=== PATIENT | male | born 1980 | race African-American/Black ===

== ENCOUNTER 2018-01-03 17:48 | Emergency (ER) | payer MEDICAID ==
[2018-01-03 18:13] LABS: PLATELET COUNT 196 10^3/uL (150-400)
--- NOTE | 2018-01-03 18:47 | EDPHY ---
General - History Smoking Status: Current every day smoker Time Seen by Provider: 01/03/18 18:20 Narrative: CHIEF COMPLAINT: "I Wanna kill somebody and I'm seeing things" HISTORY OF PRESENT ILLNESS: Patient presents by EMS with reports of "I Wanna kill somebody and I am seeing things."He states that he has had feelings of wanting to kill someone. He has no specific names. He has no specific plan. He states that he is just "felt a strong urge to kill someone." He associates this with what he describes as hallucinations. He says that "I am seeing things crawling on my arms and legs I do not think are there." These are intermittent. He has no headache, neck pain, chest pain, cough or shortness of breath. He is here asking for us to resume his medications and change the doses. No other associated complaints or modifying factors PSYCHIATRIC DIAGNOSES: Schizoaffective PRIOR PSYCHIATRIC EVALUATIONS: Multiple inpatient evaluations reported by patient M1/DETAINER: Here at 6:20 p.m. REVIEW OF SYSTEMS: Ten systems reviewed and are negative unless otherwise noted in the HPI EXAMINATION General Appearance: Alert, no distress Head: normocephalic, atraumatic Eyes: Pupils equal and round, no conjunctival pallor or injection ENT, Mouth: Mucous membranes moist Neck: Normal inspection, supple, non-tender Respiratory: Lungs are clear to auscultation Cardiovascular: Regular rate and rhythm Gastrointestinal: Abdomen is soft and nontender Back: non-tender, no bony abnormalities Neurological: A&O, nonfocal, normal gait Skin: Warm and dry, no rash Extremities: Nontender, no pedal edema Psychiatric: Normal mood and affect. Describes occasional visual hallucinations. He describes "I Wanna kill someone,"but he denies any plan or specific individuals. DIFFERENTIAL DIAGNOSES: Including but not limited to homicidal ideation, suicidal ideation, schizoaffective, schizophrenia, polysubstance abuse, malingering MDM: 6:20 p.m. Homicidal ideation and hallucinations without suicidal ideation. Patient does have known schizoaffective disorder. He has not been on medications for several months. He has been placed on a detainer. Proceed with medical clearance for evaluation. 7:30 p.m. Patient's CBC and chemistry unremarkable, but urine sample not yet obtained. 8:30 p.m. Patient is currently be evaluated by Katie with [facility] 9:30 p.m. Patient has been evaluated by Katie. She has discussed the case with Dr. Palma. Dr. Palma recommends the patient be re-evaluated in the morning due to the positive amphetamine urine drug screen. 10:30 p.m. Patient resting comfortably. 12:20 a.m. At this time I have discussed the case with Dr. Philippe. He will assume care the patient. Please see his note final disposition. The plan is for the patient to be re-evaluated by mental health at a.m. In the morning. SUPERVISION: Patient was independently examined, but I discussed the case with my secondary supervising physician Dr. Philippe ([facility]) 0600: No acute events overnight. Patient has been sleeping. Patient due to get re-evaluated this morning. Was positive for methamphetamine. Has a history of schizoaffective disorder. Signed over at 7:00 a.m. Shift change to Dr. Plasencia. (Taye Philippe) Medical Decision Making: I assumed care of the patient at 7:30 a.m. In the morning. The patient was evaluated by [facility] who feels the patient is malingering and does not meet criteria for 72 hr hold. The patient will be discharged from the emergency department. (Stephane Plasencia) - Objective Vital Signs: Initial Vital Signs Temperature (C) 36.8 C 01/03/18 18:10 Heart Rate 84 01/03/18 18:10 Respiratory Rate 18 01/03/18 18:10 Blood Pressure 129/92 H 01/03/18 18:10 O2 Sat (%) 100 01/03/18 18:10 O2 Delivery Mode Room Air Allergies/Adverse Reactions: phenytoin [From Dilantin] Allergy (Verified 01/03/18 18:19) Laboratory Results: Laboratory Results 01/03/18 18:05 01/03/18 18:05 01/03/18 19:30 Urine Opiates Screen NEGATIVE (NEGATIVE) Urine Barbiturates NEGATIVE (NEGATIVE) Ur Phencyclidine Scrn NEGATIVE (NEGATIVE) Ur Amphetamine Screen NON-NEGATIVE H (NEGATIVE) U Benzodiazepines Scrn NEGATIVE (NEGATIVE) Urine Cocaine Screen NEGATIVE (NEGATIVE) U Marijuana (THC) Screen NEGATIVE (NEGATIVE) Departure - Departure Disposition: Home, Routine, Self-Care Clinical Impression: Polysubstance abuse Condition: Fair Instructions: Methamphetamine Abuse (ED) Additional Instructions: 1. Please follow-up with the mental health resources provided in the ED today. 2. [facility] does operate a 09/11 psychiatric crisis unit located at [facility]. The telephone number for the 24 hour crisis center is [phone]. 3. Please return to the ED if you are feeling suicidal, having thoughts of harming yourself/others or should you feel unsafe or have worsening symptoms. Referrals: [facility] [Outside] - As per Instructions
[2018-01-04 08:26] VITALS: BP 149/109
--- NOTE | 2018-01-04 08:45 | ASMTTLCEVL ---
[facility] Evaluation - Basic Information Evaluation Start Date and 01/03/2018 08:30 PM Time Hospital Status Answers: Voluntary Patient statement Notes: " I'm hallucinating and I feel like I want to hurt people again." Narrative Notes: Pt is a 37 year old, homeless, unemployed, male with reported history of schizoaffective disorder - bipolar type, methamphetamine use disorder, and cocaine use disorder, who was brought to [facility] ED by [facility] after he called and told them he wanted to kill someone and was seeing things. Pt reported he is "seeing little things crawling on me." Pt reported he started having these thoughts earlier today but has had HI and VH in the past. Pt reports that in the past he was on drugs when he had HI and VH and stated, " Now I am not." Pt does not have anyone in particular he wants to harm. Pt reported he has been off his medications for the past few weeks and stated it is because he has not refilled his prescription. Pt receives services through [facility] in [place] and sees Dr. Schumacher. Pt also is enrolled in [facility] but has not started services. Per Haily at [facility], pt was in [facility] on 10/01/17 and was evaluated 3 times in 3 days but was never placed. Diagnosis History Notes: Pt has a hx of schizoaffective, bipolar type and amphetamine use. Prior suicide attempts Notes: Pt stated, "I just got tired of living." Pt was vague about prior attempts and stated, " I've walked in front of cars, traffic, took pills." When asked when his most recnt attempt was, pt stated, " Lasy year, year before." Prior hospitalizations Notes: Pt was hospitalized at [place] in 2017. Treatment Responses Notes: Medication non-compliant and continues to use methamphetamine. History of violence Notes: Pt reports HI at this time with nobody in particular he wants to harm. Psychiatrist: Dr. Schumacher at [facility]. Medications (name, dosage, route, freq uency) Notes: Effexor 100 mg Seroquel 400 mg Klonodine (dose unk) Kolonopin (dose unk) Allergies/Reaction Notes: Unk Sleep Notes: Pt stated he has been "Up for the last few days." Appetite Notes: Pt stated, " I've been real hungry." Medical/Surgical history Notes: Pt stated his back and hands hurt. Pt declined to elaborate. Substance use history (frequency, intensity, his tory, duration) Notes: Pt reported he has a hx of meth use but stated, "I haven't used in a week." When this ad writer informed pt his utox was positive for amphetamine, pt asked to take another utox and stated, "That will mess me up." Pt stated he has been using meth "off and on" for the past year. Per [facility], pt also has a hx of cocaine use, Bal was.0. Family composition Notes: Pt reported he has 1 boc and moc. Pt declined to provide further information about his family. Family psychiatric/substance abuse history Notes: Pt reported his mother and father both have depression. Developmental history Notes: Unable to asses. Pt kept falling asleep during and unable to answer questions. Abuse concerns Answers: None Marital status/children Notes: Pt is and has 2 children ages 8 and 6. Pt stated his children live with their mother but he does see his children. He reports he does not have custody. Living situation Notes: Pt is currently homeless. Pt was in [place] and just came to [place] a couple nights ago. Sexual history/orientation Notes: Not active. Heterosexual. Peer support/family strengths Notes: Pt stated, "I have none." Education level/history Notes: Pt stated he has a GED. Work history Notes: Pt stated he is not working. Notes: None Legal Notes: None reported Alevism/Spiritual Notes: None identified that would intefere with treatment. Leisure Notes: None reported. Collateral Notes: P. Patient's strengths Answers: Motivated for Treatment (Please select at least TWO strengths): Willingness [facility] Evaluation - Mental Status Exam Appearance: Answers: Disheveled Eye Contact: Answers: Absent Avoiding Mood: Answers: Irritable Affect: Answers: Irritable Behavior: Answers: Cooperative Impulsive Manipulative Passive Sleeping Speech: Answers: Irrelevant Coherent Slurred Thought Process: Answers: Oriented Loose Associations Insight: Answers: Poor Judgement: Answers: Poor Manic Signs/Symptoms Answers: Impulsivity Irritability Depression Answers: Difficulty Concentrating Signs/Symptoms: Psychomotor Agitation Hallucinations: Answers: Visual Current Stage of Change Answers: Precontemplation Pt reported to have Answers: No suicidal/self-injuring ideation/behavior? Pt reported to be making Answers: No suicidal/self-injuring threats? Pt reported to have Answers: Yes aggression/assault ideation/behavior? Pt reported to be making Answers: Yes aggression/assault threats? Pt exhibits inability to Answers: No care for self/grave disability? Ideation/behavior is Answers: Yes chronic? Patient has a specific Answers: No plan? Pt has access to means to Answers: No execute the plan? Ideation involves Answers: No serious/lethal intent? Ideation has Answers: No delusional/hallucinatory content? History of Answers: Yes suicidal/self-injuring ideation, behavior, or threats? History of Answers: No aggressive/assaultive ideation, behavior, or threats? History of serious Answers: No physical harm to self/others while in treatment setting? [facility] Evaluation - Suicide/Homicide Risk Suicide Risk Factors: Answers: Alcohol/Heavy Drug Use Bipolar Disorder Impulsivity Inadequate Social Support Lack of Alevism Support Lack/Loss of Employment Schizoaffective Disorder Unstable Living Situation Homicide/violence risk Answers: Heavy Drug Use factors: Threats Towards Others Current Suicidal Answers: No Ideation? Current Suicidal Ideation Answers: No in the Past 48 Hours? Current Suicidal Ideation Answers: No in the Past Month? Current Suicidal Answers: No Ideation, Worst Ever? Suicide Internal Answers: Radha with Stress Protective Factors: Suicide External Answers: Responsibility to Protective Factors: Children Ranking of patient's Answers: Low suicidal risk: Ranking of patient's Answers: Low homicidal risk: [facility] Evaluation - Wrap-up AXIS I Diagnosis (include DSM-V and ICD-10 codes), must also be entered in [employer], which is the source of truth. 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 ED physician, Gary Plasencia MD, Dr. Plasencia concurred that pt does not appear to meet 27-65 criteria requiring psychiatric hospitalization as pt does not appear to be an imminent risk of harm to self/others/gravely disabled due to a mental illness condition. pt was offered a bus pass back to [place] where his providers at [facility] are located also. Pt stated commitment or ability to keep self safe. Pt was given local hotline information and [facility] brochure After an Attempt. Evaluation End Date and 01/04/2018 08:30 AM Time (HH:MM): Date Signed: 01/04/2018 08:44 AM Electronically Signed By:Colten Goode
--- NOTE | 2018-01-04 08:46 | ASMTTCLDSP ---
[facility] Discharge Disposition Disposition: Answers: Discharge If Answers: Yes DISCHARGED: Patient/family given suicide hotline info & [employer] brochure? Disposition Notes: Notes: Pt was offered a bus pass back to [place] where his providers at [facility] are located also. Pt stated commitment or ability to keep self safe. Pt was given local hotline information and [employer] brochure After an Attempt. Discharge Concerns/Recommendations: Notes: In consultation with [facility] ED physician, Gary Plasencia MD, Dr. Plasencia concurred that pt does not appear to meet 27-65 criteria requiring psychiatric hospitalization as pt does not appear to be an imminent risk of harm to self/others/gravely disabled due to a mental illness condition. Was patient given the Answers: Not applicable Inpatient Behavioral Health Prohibited Belongings List while in the ED? Date Signed: 01/04/2018 08:45 AM Electronically Signed By:Colten Goode
== END 2018-01-04 08:38 | disposition home or self-care (01) ==
DX: F15.151 Other stimulant abuse with stimulant-induced psychotic disorder with hallucinations (principal); F20.9 Schizophrenia, unspecified
CPT/HCPCS: 80305; G0480

== ENCOUNTER 2018-02-02 06:19 | Inpatient (IN) | payer MEDICAID, OTHER ==
--- NOTE | 2018-02-02 06:30 | EDPHY ---
H & P Source: Patient, Police, EMS - Medical/Surgical History Hx Asthma: Yes Hx Chronic Respiratory Disease: No Hx Diabetes: No Hx Cardiac Disease: No Hx Renal Disease: No Hx Cirrhosis: No Hx Alcoholism: No Hx HIV/AIDS: No Hx Splenectomy or Spleen Trauma: No Other PMH: asthma. PTSD, Bipolar. - Social History Smoking Status: Current every day smoker Time Seen by Provider: 02/02/18 06:27 HPI/ROS: HPI CHIEF COMPLAINT: Gravely disabled, M1 hold by [facility] HISTORY OF PRESENT ILLNESS: 37-year-old male presents emergency room by EMS with police escort after was seen at [facility] and had evaluation placed on M1 hold for potentially being gravely disabled, and paranoid. Patient arrives to the emergency room is very uncooperative. Refusing to take off his jacket refusing to get vital signs, refusing blood work. Patient keep stating that he wants to be re-evaluated. Patient is unhappy about being here. Police at bedside. Due to this review of systems history somewhat limited. Past Medical History: Schizophrenia, paranoid Past Surgical History: Unknown surgical Social History: Unknown Family History: Unknown ROS REVIEW OF SYSTEMS: Limited due to patient's cooperation. Exam Constitutional uncooperative however nontoxic triage nursing summary reviewed, vital signs reviewed, awake/alert. Eyes normal conjunctivae and sclera, EOMI, PERRLA. HENT normal inspection, atraumatic, moist mucus membranes, no epistaxis, neck supple/ no meningismus, no raccoon eyes. Respiratory clear to auscultation bilaterally, normal breath sounds, no respiratory distress, no wheezing. Cardiovascular rate normal, regular rhythm, no murmur, no edema, distal pulses normal. Gastrointestinal soft, non-tender, no rebound, no guarding, normal bowel sounds, no distension, no pulsatile mass. Genitourinary no CVA tenderness. Musculoskeletal no midline vertebral tenderness, full range of motion, no calf swelling, no tenderness of extremities, no meningismus, good pulses, neurovascularly intact. Skin pink, warm, & dry, no rash, skin atraumatic. Neurologic awake, alert and oriented x 3, AAOx3, moves all 4 extremities equally, motor intact, sensory intact, CN II-XII intact, normal cerebellar, normal vision, normal speech. Psychiatric angry, uncooperative Heme/Lymph/Immune no lymphadenopathy. Differential Diagnosis: Includes but is not limited to in a particular order underlying mental illness, paranoid schizophrenia, acute psychosis, drug intoxication Medical Decision Making: Plan for this patient he will need medical clearance with blood drawn urine. He will need formal evaluation after this. Re-evaluation: Signed over to Dr. Hernandez 7am. (Taye Philippe) Constitutional: Initial Vital Signs Temperature (C) 36.6 C 02/02/18 06:20 Heart Rate 114 H 02/02/18 06:20 Respiratory Rate 20 02/02/18 06:20 Blood Pressure 145/114 H 02/02/18 06:20 O2 Sat (%) 96 02/02/18 06:20 O2 Delivery Mode Room Air O2 (L/minute) 2 Allergies/Adverse Reactions: phenytoin [From Dilantin] Allergy (Verified 02/02/18 07:01) Home Medications: Medication Instructions Recorded NK [No Known Home Meds] 02/02/18 Medical Decision Making ED Course/Re-evaluation: 7:00 a.m. care of this patient at shift change. History of schizophrenia, presents with acute psychosis. Zyprexa 10 mg IM given during the material handler 2nd shift. Now resting comfortably. Mental health evaluation pending. (Ana Hernandez) I took over care of this patient at 3:00 p.m.. This patient is on an M1 hold. The patient has a history of schizophrenia it is acutely psychotic. The patient has been given intramuscular Zyprexa. The patient is being evaluated currently. 5:30 p.m., the patient has been seen and evaluated by Behavioral Health. He will be admitted to [address] [place] [address] for inpatient psychiatric care. Admitting psychiatrist if his Dr. Palma. I have filled out the appropriate transfer paperwork. The patient's remaining emergency department course under my care has been uneventful. The patient was transferred in stable condition. ( Ildefonso Bishop) - Data Points Laboratory Results: Laboratory Results 02/02/18 06:45 02/02/18 06:45 02/02/18 02/02/18 02/02/18 08:00 06:45 06:45 WBC 11.72 10^3/uL H 10^3/uL (3.80-9.50) RBC 5.01 10^6/uL 10^6/uL (4.40-6.38) Hgb 16.1 g/dL g/dL (13.7-17.5) Hct 45.1 % % (40.0-51.0) MCV 90.0 fL fL (81.5-99.8) MCH 32.1 pg pg (27.9-34.1) MCHC 35.7 g/dL g/dL (32.4-36.7) RDW 13.0 % % (11.5-15.2) Plt Count 334 10^3/uL 10^3/uL (150-400) MPV 9.1 fL fL (8.7-11.7) Neut % (Auto) 74.0 % % (39.3-74.2) Lymph % (Auto) 16.4 % % (15.0-45.0) [place] % (Auto) 8.5 % % (4.5-13.0) Eos % (Auto) 0.2 % L % (0.6-7.6) Baso % (Auto) 0.7 % % (0.3-1.7) Nucleat RBC Rel Count 0.0 % % (0.0-0.2) Absolute Neuts (auto) 8.68 10^3/uL H 10^3/uL (1.70-6.50) Absolute Lymphs (auto) 1.92 10^3/uL 10^3/uL (1.00-3.00) Absolute Monos (auto) 1.00 10^3/uL H 10^3/uL (0.30-0.80) Absolute Eos (auto) 0.02 10^3/uL L 10^3/uL (0.03-0.40) Absolute Basos (auto) 0.08 10^3/uL 10^3/uL (0.02-0.10) Absolute Nucleated RBC 0.00 10^3/uL 10^3/uL (0-0.01) Immature Gran % 0.2 % % (0.0-1.1) Immature Gran # 0.02 10^3/uL 10^3/uL (0.00-0.10) Sodium 137 mEq/L mEq/L (135-145) Potassium 4.9 mEq/L mEq/L (3.3-5.0) Chloride 99 mEq/L mEq/L (97-110) Carbon Dioxide 23 mEq/l mEq/l (22-31) Anion Gap 15 mEq/L H mEq/L (6-14) BUN 23 mg/dL mg/dL (7-23) Creatinine 1.1 mg/dL mg/dL (0.7-1.3) Estimated GFR > 60 Glucose 112 mg/dL H mg/dL (70-100) Calcium 10.6 mg/dL H mg/dL (8.5-10.4) Urine Opiates Screen NEGATIVE (NEGATIVE) Urine Barbiturates NEGATIVE (NEGATIVE) Ur Phencyclidine Scrn NEGATIVE (NEGATIVE) Ur Amphetamine Screen NEGATIVE (NEGATIVE) U Benzodiazepines Scrn NEGATIVE (NEGATIVE) Urine Cocaine Screen NEGATIVE (NEGATIVE) U Marijuana (THC) Screen NEGATIVE (NEGATIVE) Ethyl Alcohol < 10 mg/dL mg/dL (0-10) Medications Given: Discontinued Medications Olanzapine (Zyprexa Injection) 10 mg IM EDNOW ONE Stop: 02/02/18 06:35 Last Admin: 02/02/18 06:50 Dose: 10 mg Departure - Departure Disposition: [facility] IP Clinical Impression: Schizophrenia, Psychosis Referrals: Patient,NotPresent [Unknown] - As per Instructions
[2018-02-02] MEDS ORDERED: OLANZapine 10 MG/2 ML VIAL IM ONE (06:34)
[2018-02-02 06:50] LABS: PLATELET COUNT 334 10^3/uL (150-400)
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
--- NOTE | 2018-02-02 18:45 | ASMTTCLDSP ---
TLC Discharge Disposition Disposition: Answers: Admit Disposition Notes: Notes: In consultation with [facility] ED physician, Amna Hernandez MD and on-call psychiatrist, Mike Ramirez MD, both concurred that pt appears to meet 27-65 criteria requiring psychiatric hospitalization as pt appears to be at risk of harm to self due to a mental illness condition. Discharge Concerns/Recommendations: Notes: Pt would not cooperate and complete BDI/BSS or sign patient rights. Was patient given the Answers: Yes Inpatient Behavioral Health Prohibited Belongings List while in the ED? For inpatient Dr Mike Ramirez admission, the following psychiatrist agreed to accept patient for admission to Behavioral Health ([facility]): Type of Hold: Answers: /72-hour Hold Date Signed: 02/02/2018 06:44 PM Electronically Signed By:Mellisa Parker
[2018-02-02] MEDS ORDERED: OLANZapine DISINTEGR 5 MG TAB PO PRN (21:43)
[2018-02-02] MEDS ORDERED: MAG HYDROX/AL HYDROX/SIMETH 30 ML UDCUP PO PRN (21:43)
[2018-02-02] MEDS ORDERED: ACETAMINOPHEN 325 MG TAB PO PRN (21:43)
[2018-02-02] MEDS ORDERED: MAGNESIUM HYDROXIDE 30 ML UDCUP PO PRN (21:43)
[2018-02-02] MEDS ORDERED: NICOTINE POLACRILEX 2 MG GUM B PRN (21:43)
[2018-02-03] MEDS: LORazepam 0.5 MG TAB PO PRN ×2 (02:03→20:07)
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
--- NOTE | 2018-02-03 14:11 | BAPA ---
DATE OF SERVICE: 02/03/2018 CHIEF COMPLAINT: Patient refuses to meet with this AUTOMOTIVE SALES REPRESENTATIVE for evaluation. HISTORY OF PRESENT ILLNESS: From the ED note dated 02/02/2018, patient presented to the emergency room by EMS with police escort after he was seen at [facility], evaluated, and placed on an M1 hold for being gravely disabled and paranoid. Patient was very uncooperative in the emergency room. Patient refused to take off his jacket, refused vital signs, refused blood work. Patient repeatedly kept stating that he wanted to be reevaluated. Patient reported he was unhappy about being at the emergency department. Police were at bedside during the emergency department interview. Patient is a poor historian and provided very little information during the ED interview. From the [facility] evaluation dated 02/02/2018, patient was placed on an M1 hold with M1 hold start date of 02/02/2018 at 5:30 a.m. Patient reported to the [facility] supervisor border department "for my safety." Patient only spoke spontaneously about how he felt. He was mistreated by staff in the emergency department. Patient is homeless, was brought to the [facility] ED on an M1 hold. Patient has a history of schizoaffective disorder. M1 hold stated that patient reported hearing things, seeing things, felt paranoid, and was too suspicious and paranoid to remain at [facility] walk-in clinic. Patient was placed on an M1 hold due to grave disability. Patient was given Zyprexa 10 mg injection at 0634. [facility] reported that patient has a history of meth use and recently started using Mental Health treatment and not following through with treatment recommendations. Patient's BAL was negative and toxicology screen was negative for substances screened. Patient presented to the emergency department on 01/03. History of diagnoses of schizoaffective disorder bipolar type, methamphetamine use disorder, and cocaine use disorder. At that time, patient was brought to the [facility] ED by the [facility] after he called and told them he wanted to kill someone and was seeing things. Patient reported "seeing little things crawling on me." Patient received services at that time at [facility] in [place], [place], and was followed by Dr. Schumacher at that time. Patient also was enrolled in [facility], but has not started services. Patient was also in the [facility] on 10/01/2017 and was evaluated, but never placed for inpatient psychiatric treatment at that time. PAST PSYCHIATRIC HISTORY: From the [facility] evaluation dated 02/02/2018, patient has a history of polysubstance abuse, PTSD, bipolar disorder, and schizoaffective disorder. Patient has history of medication nonadherence and continuous methamphetamine use. Patient was previously diagnosed with malingering, schizoaffective disorder bipolar type, substance use disorder and substance use disorder severe. Patient has a past history of suicide attempts through cutting, stepping in front of cars, and taking pills in the past. Patient has reported he has sought help instead of following through with suicide attempts. Prior hospitalizations for inpatient psychiatric hospitalization include 01/2017 at [place], January 2009, June of 2009, and September of 2009 at a [facility]. Patient has a history of poor compliance with treatment after making initial evaluation appointments. Patient has a history of aggressiveness towards others when he feels threatened. Patient has a history of making homicidal statements in the past, documented in past ED visit on December of 2016. PAST MEDICATIONS: Include Effexor 100 mg daily, Seroquel 400 mg daily, clonidine unknown dose, and Klonopin unknown dose. ALLERGIES: Phenytoin. CURRENT MEDICATIONS: Zyprexa Zydis 5 to 10 mg p.o. q.4 hours p.r.n. for acute agitation and psychosis; Ativan 0.5, 1 mg p.o. q.6 hours p.r.n. for acute agitation. PAST MEDICAL HISTORY: Patient has a history of asthma. Patient reported a past history of a hernia, and a history of reporting back and hand pain. SOCIAL HISTORY: Patient reported he has 8 children, but only possibly the biological father of 1 child. Patient is currently not . Patient grew up in [place], [place], with his mother and younger brother. Patient's father was not involved in his upbringing since his father was in and out of intermediate for drug issues. Patient's mother remarried when patient was young. Patient spent part of his childhood living in [place] when his stepfather was in the . Patient has a history of special education during his early school years. Patient does report that he is possibly father of 8 children, but did not appear to be a reliable historian when providing this information to the [facility] supervisor border department. Patient is currently homeless in [facility]. He moved from [place] to apparently escape gangs and drugs. Patient reports sexual orientation as heterosexual. Reports he is currently not in a relationship. Patient does not appear to have any peer support and has not followed up with establishing a support system. Patient completed school up to the 11th grade and was in special education classes in elementary school due to being "so angry." Patient indicated completing his GED. Patient is currently unemployed. No known history. Patient was apparently released from group home in June of 2017. Report is vague. Patient has been charged in the past with assaulting a chief of police, second-degree assault, drug possession, and drug distribution. Patient has a history of multiple incarcerations for up to 1 year at a time. Patient identifies himself as a islam person and has expressed in the past that yazdanism is important to him. He identifies himself as Baptism. Patient unable to report hobbies or leisure interests. This information for the social history was taken from the [facility] evaluation dated 02/02. SUBSTANCE USE HISTORY: Patient has a past history of daily meth use. Patient used meth for the first time at age 35. Patient's first use of marijuana was at age 19. Patient has a history of cocaine use. This information is taken from the [facility] evaluation dated 02/02/2018. FAMILY PSYCHIATRIC HISTORY: From the [facility] evaluation dated 02/02/2018, patient reports his mother was diagnosed with schizophrenia and his father and grandmother were diagnosed with bipolar disorder. ADMISSION LABS AND STUDIES: CBC from 02/02/2018 within normal limits except white blood cells were elevated at 11.72, eosinophils were low at 0.2, absolute neutrophils were elevated at 8.68, absolute monocytes were elevated at 1.00, absolute neutrophils were low at 0.02. BMP from 02/02/2018 within normal limits except anion gap was elevated at 15, glucose was elevated at 112, calcium elevated at 10.6. Hemoglobin A1c from 02/02/2018 within normal limits at 5.2. Liver functions from 02/02/2018 within normal limits except AST was elevated at 60 and total protein was elevated at 8.6. Lipid panel from 2017 within normal limits except non-HDL cholesterol was low at 87, HDL cholesterol was elevated at 73. Toxicology screen from 02/02/2018 was negative for all substances screened and negative for ethyl alcohol. MENTAL STATUS EXAM: The patient is a well-nourished male, looking stated chronological age. Attire is inappropriate. Dress is hospital garb and is disheveled and unkempt. Grooming status is inappropriate and disheveled. Ambulation is independent. Gait is normal and coordinated. Posture is normal and relaxed. Eye contact is inappropriate and avoided. Motor activity is appropriate with purposeful, organized, coordinated movements with no involuntary movements noted. Attitude is uncooperative, guarded, defensive, hostile, and angry. Patient appears disinterested and does not relate well to this interviewer. Language production is non-spontaneous. Rate is pressured. Latency of response is prolonged with irritable, angry tone, high volume, and amount is sparse. Articulation is mumbled. Patient reports mood as angry and irritable with expansive and congruent affect. Patient's thought process is nonlinear and illogical with loose associations, tangential thought, thought blocking. Patient is disorganized. Patient does not report suicidal or homicidal thoughts, ideas or plans. Patient denies auditory or visual hallucinations. Patient denies delusions. Patient does not appear to be attending to internal stimuli. Patient is oriented to person. Patient's attention and concentration are poor. Patient's insight and judgment are poor. Unable to appropriately assess cognitive function at this time. Patient does not report undesirable side effects from medications. DIAGNOSES: Based on the patient's history and current presentation, his diagnosis is schizoaffective disorder bipolar type. FORMULATION: Patient is a 37-year-old male, single, unemployed, living homeless in [place], who presents to the hospital involuntarily due to being unable to care for himself and is currently on an M1 hold. Patient requires continued inpatient care because of current psychosis. Patient presents with problems of psychosis, inability to care for himself and communicate his needs, has steadily been increasing over the past several weeks. Patient's life has been affected by these problems including crisis that led to this hospitalization, notably patient's inability to properly care for himself, communicate his needs , and reports that he was hearing and seeing things prior to hospitalization. The exacerbation of symptoms is unknown at this time, however, is likely due to medication nonadherence and substance abuse. This will continue to be investigated during the course of the patient's hospitalization. Patient has a past psychiatric history of schizoaffective disorder bipolar type and stimulant use disorder and nonadherence to medical treatment. Patient is a high safety risk due to current psychosis. Protective factors while hospitalized include ongoing safety checks, active involvement in treatment, and support from our treatment team. Patient could benefit from inpatient hospitalization for safety , crisis stabilization, and medication evaluation. PLAN: (1) Psychotropic medications. Begin a trial of Risperdal M-Tab 1 mg with objective to begin patient on a long-acting injectable prior to discharge due to patient's history of medication nonadherence. No other medication changes at this time as more time is needed to determine ongoing tolerability and efficacy. Plan is to continue to observe patient for response and side effects from medications, and ongoing monitoring and evaluation. (2) Review with patient informed consent and recommendations for psychotropic medication treatment listed below (3) Labs: no additional labs at this time (4) Therapy: continue milieu and group therapy (5) Further investigation including gathering information from patients relatives and review of past case records to inform treatment plan. (6) Safety/Wellness plan and follow-up outpatient appointments to be established prior to discharge. Next steps are for patient to meet with child care attendant school to plan a safe discharge plan and establish outpatient services for ongoing treatment. (7) Confer with inpatient treatment team regarding treatment plan. (8) Legal status: M1 hold (9) Consider discharge next week if patient is in stable condition, safe, and has a safe discharge plan. (10) Substance abuse interventions: methamphetamine ESTIMATED LENGTH OF STAY: 7-10 days PSYCHOTROPIC MEDICATION TREATMENT INFORMED CONSENT and RECOMMENDATIONS: Review nature of condition, diagnosis, and prognosis. Review nature and purpose of psychotropic medication treatment. Review type of psychotropic medications being ordered. Review risk and benefits of psychotropic medication treatment. Review probable length of time will need to take medications. Review risk and benefits of not undergoing psychotropic medication treatment. Review alternative treatments to psychotropic medications. Review psychotropic medications contraindications, drug-drug interactions, side effects, and importance of reporting any side effects to a psychiatric provider or nurse during inpatient hospitalization, and upon discharge to patients psychiatric outpatient provider, primary care provider, or other health director day care center. Review importance of asking a nurse, psychiatric provider, or primary care provider any questions or problems concerning the psychotropic medications. Verify patient understands the information that has been provided, and understands, accepts, and agrees to psychotropic medications. Review patients safety plan and importance of patient to communicate to staff while hospitalized if patient is ever a danger to self/others, or unable to care for self, and upon discharge, the importance for patient to contact [facility] or [facility], or go to the nearest emergency room, if patient is ever a danger to self/others, or unable to care for self. Recommend that upon discharge patient establish medication management treatment with a psychiatric provider, establishes routine therapy appointments, and follow-up with primary care provider. Verify patient understands and agrees to these recommendations. /[id number]/MODL MTDD
[2018-02-03] MEDS: RISPERIDONE 1 MG ODT TAB SL ONE ×2 (14:28→14:51)
--- NOTE | 2018-02-03 15:29 | PDMN ---
Medical Necessity Medical necessity: Pt meets inpt criteria per MD order and [id number], Schizophrenia Spectrum Disorders, Adult: Inpatient Care. 37 y/o presented to ED on M1 Hold due to being gravely disabled and paranoid, admitted w/ schizoaffective disorder, bipolar type, pt requiring inpt psychiatric care due to current psychosis.
--- NOTE | 2018-02-03 16:59 | BCON ---
INTERNAL MEDICINE CONSULTATION. DATE OF CONSULTATION: 02/03/2018 REFERRING PHYSICIAN: Ezio Curiel MD REASON FOR REFERRAL: Medical clearance for inpatient behavioral health stay. HISTORY OF PRESENT ILLNESS: This patient came to the Emergency Department yesterday on an M1 hold from a mental health walk-in clinic where he was noted to be paranoid and gravely disabled. He was initially uncooperative. He was treated with olanzapine and subsequently was cooperative for further evaluation. He was admitted to inpatient Behavioral Health for further psychiatric care. Currently, he complains of hand and feet swelling and hand and feet pain. PAST MEDICAL HISTORY: 1. Asthma. 2. Hernia. 3. Polysubstance abuse. PAST SURGICAL HISTORY: He reports history of hernia surgery. MEDICATIONS: He had been noncompliant. Per the Case Management note, he had been prescribed: 1. Venlafaxine 100 mg daily. 2. Quetiapine 400 mg daily. 3. Clonazepam. ALLERGIES: There is an allergy listed to phenytoin. SOCIAL HISTORY: He is homeless. He is a tobacco smoker. He has a history of methamphetamine and polysubstance abuse. FAMILY HISTORY: There is a family history reported in the chart of schizophrenia and bipolar disorder in various relatives. REVIEW OF SYSTEMS: He reports weight loss but chart review documents stable weight over the past month since his prior visit on 01/03/2018. He complains of hand and foot swelling as well as hand and foot pain. He says he is having trouble breathing. He denies fevers or chills. He says he has constipation. He denies nausea, vomiting, or diarrhea. He has a good appetite. He denies joint pain or joint swelling other than in his hands and feet. Otherwise, a 10- point review of systems is negative. PHYSICAL EXAM: VITALS: This morning at 6 a.m., blood pressure was 101/58, heart rate was 69, respiratory rate was 16, oxygen saturation was 90% on room air. Temperature was 36.8 degrees centigrade. His weight is 68 kg for a body mass index of 24.2. GENERAL: This is a well-nourished, well-developed man, appears his chronologic age, dressed in a [employer] hospital smock and jeans, cooperative and in no acute distress. HEENT: Extraocular movements are intact. Pupils are equal, round, reactive to light. Mucous membranes are moist. Dentition is in good condition. He has an uncrowded airway, Mallampati class 2. NECK: Supple. HEART: There is a regular rate and rhythm with no murmurs, rubs, or gallops. LUNGS: Clear to auscultation bilaterally. ABDOMEN: Soft, nontender, nondistended with normoactive bowel sounds. EXTREMITIES: There is no cyanosis or clubbing. There is 1 to 2+ nonpitting edema bilateral on the dorsal surfaces of the hands and wrists. There is no lower extremity edema. Radial and dorsalis pedis pulses are 2+ bilaterally. NEUROLOGIC: He is alert, orientation was not checked. He knows his location and general situation. Cranial nerves 2-12 are grossly intact. There is no focal weakness. Sensation is intact to light touch and gait is within normal limits. LABORATORY STUDIES: CBC showed an elevated white blood cell count at 11.72. There was no left shift. There were predominantly neutrophils and monocytes. He had a deficit of eosinophils. Serum chemistry revealed an anion gap of 15, otherwise renal function and electrolytes were normal. Glucose was mildly elevated at 112. Hemoglobin A1c was 5.2. Calcium was slightly elevated at 10.6. Liver function tests revealed an elevated AST at 60, otherwise liver function tests were normal with a high protein at 8.6. Lipid panel was quite benign with cholesterol of 160, an LDL of 74, and HDL of 73. Toxicology screen in the serum was negative for ethyl alcohol and the urine was negative for any substances of abuse. ASSESSMENT/RECOMMENDATIONS: 1. History of asthma. He is currently asymptomatic with a normal lung exam and I will not prescribe any specific medications. 2. Tobacco dependence. He was encouraged to quit smoking. Nicotine replacement has been prescribed and this is appropriate. 3. Bilateral hand swelling of unclear etiology. He has normal renal function, normal electrolytes and normal albumin. Potentially he has been doing an excessive amount of walking with his hands in dependent position. Advised observation. 4. Mildly elevated AST in a patient with a history of polysubstance abuse. He did not report a history of hepatitis. Advise follow up testing after discharge. If it does not normalize, it would be appropriate to pursue further testing regarding hepatitis or other etiologies of liver inflammation. 5. Anion gap. He is without any signs or symptoms of an acidosis, metabolic or respiratory. Advise observing for normal oral intake. It is a minor abnormality and there is no indication for further testing at present. I see no medical contraindications to this patient's continued stay on the inpatient behavioral health unit or to any psychiatric medications or procedures. Thank you very much for including me in the care of this patient and please do not hesitate to contact me or the hospitalist service should there be need for further medical evaluation. /[id number]/MODL MTDD
[2018-02-04] MEDS: QUEtiapine FUMARATE 100 MG TAB PO SCH ×2 (08:09→20:23)
--- NOTE | 2018-02-04 08:13 | SOAPPROG ---
SOAP Progress Note Assessment/Plan: Assessment: Schizoaffective disorder, bipolar type; Stimulant Use Disorder, Severe. No change (see Subjective and Objective). Patient is not safe to discharge at this time as patient continues to exhibit signs of psychosis, and express psychosis symptoms. Patient requires continued inpatient care because of current acute psychosis, and requires inpatient level of care to stabilize in order to no longer be gravely disabled due to mental illness. Patient could benefit from continued inpatient hospitalization for crisis stabilization, safety, and medication evaluation. Plan: (1) Psychotropic medications: After reviewing options, risks, and benefits patient agrees to trial of Seroquel 100 mg po BID. Plan is to continue to observe patient for response and side effects from medications, and ongoing monitoring and evaluation. (2) Review with patient informed consent and recommendations for psychotropic medication treatment listed below (3) Labs: no additional labs at this time (4) Therapy: continue milieu and group therapy (5) Further investigation including gathering information from patients relatives and review of past case records to inform treatment plan. (6) Safety/Wellness plan and follow-up outpatient appointments to be established prior to discharge. Next steps are for patient to meet with residential child care counselor to plan a safe discharge plan and establish outpatient services for ongoing treatment. (7) Confer with inpatient treatment team regarding treatment plan. (8) Legal status: M1; patient agrees to sign-in for voluntary hospitalization when M1 expires (9) Consider discharge next week if patient is in stable condition, safe, and has a safe discharge plan. PSYCHOTROPIC MEDICATION TREATMENT INFORMED CONSENT and RECOMMENDATIONS: Review nature of condition, diagnosis, and prognosis. Review nature and purpose of psychotropic medication treatment. Review type of psychotropic medications being ordered. Review risk and benefits of psychotropic medication treatment. Review probable length of time patient will need to take medications. Review risk and benefits of not undergoing psychotropic medication treatment. Review alternative treatments to psychotropic medications. Review psychotropic medications contraindications, drug-drug interactions, side effects, and importance of reporting any side effects to a psychiatric provider or nurse during inpatient hospitalization, and upon discharge to patients psychiatric outpatient provider, primary care provider, or other health residential child care counselor. Review importance of asking a nurse, psychiatric provider, or primary care provider any questions or problems concerning the psychotropic medications. Verify patient understands the information that has been provided, and understands, accepts, and agrees to psychotropic medications. Review patients safety plan and importance of patient to report to staff while hospitalized if patient is ever a danger to self/others, or unable to care for self, and upon discharge, the importance for patient to contact [facility] or [facility], or go to the nearest emergency room, if patient is ever a danger to self/others, or unable to care for self. Recommend that upon discharge patient establish medication management treatment with a psychiatric provider, establishes routine therapy appointments, and follow-up with primary care provider. Verify patient understands and agrees to these recommendations. 02/04/18 08:13 Subjective: Following up with patient for evaluation of psychosis and safety. When this PERMANENT WAVER asks patient reason for refusing Risperdal yesterday and patient reports, "Risperdal doesn't work for me, Seroquel is what I take. I've taken 600 mg a day before." Patient states, "Are you going to sign me up for a program? They said I would be signed up for some type of program? When's breakfast? Is it here yet?" Patient does not report undesirable side effects from the medications, and agrees to continue current medications. Patient reports appetite as good, and reports eating all meals. Patient describes getting 12 hours of sleep. Patient agrees to trial of Seroquel 100 mg po BID. Patient agrees to sign-in for voluntary hospitalization. Objective: Vital Signs Temp Pulse Resp BP Pulse Ox 36.8 C 69 16 101/58 L 90 L 02/03/18 06:00 02/03/18 06:00 02/03/18 06:00 02/03/18 06:00 02/03/18 06:00 NURSING REPORT: Consulted with nursing for update on patients progress in treatment. Nurses report patient is not engaged in treatment, is not attending groups, slept 14 hours, is withdrawn to his room, in bed majority of the day, comes out for meals, expresses the following psychiatric symptoms: severe anxiety; exhibits the following psychiatric symptoms: disorganized, paranoid, illogical, non-linear; is eating all meals, is agreeable to medications and taking as prescribed with no report of side effects, with no s/s of EPS/ akathisia, and denies SI/HI, denies A/V hallucinations, and denies delusions. 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 SUBSTANCE ABUSE BRIEF INTERVENTION: Brief intervention regarding the risks of methamphetamine abuse is provided to patient with goal to reduce the risk of harm that could result from the continued use of methamphetamine, with the general aim to investigate the problem, raise awareness of problem, develop a solution with the patient, recommend a specific change or activity, and motivate the patient toward change. Assess substance abuse behavior and give supportive advice about harm reduction, recommend a reduction in hazardous/at- risk consumption patterns, and facilitate referrals for additional specialized treatment with animal caregiver. Intermediate goal is for the patient to quit and engage in outpatient substance abuse treatment. Intervention focus on intermediate goals to allow for more immediate success in the treatment process to keep the patient motivated. Review following with patient: Methamphetamine use risks: Short-term: insomnia, irritability, aggressive behavior, hallucinations, delusions, intellectual deficits, anxiety, depression, convulsions, damage to blood vessels in the brain causing strokes, high fevers, collapse of the circulatory system. Long-term: damage to nerve pathways, maybe irreversibly; overstimulation to dopamine impairing dopamine transport and reducing efficiency of dopamine receptors, the reward system becomes worn out, leading to inability to experience pleasure for years. MSE: The patient is a well-nourished male looking stated chronological age. Attire is inappropriate and dress is casual and hospital garb combination. Grooming status is inappropriate and disheveled. Ambulation is independent. Gait is normal and coordinated. Posture is normal and relaxed. Eye contact is inappropriate, and avoided. Motor activity is appropriate with purposeful, organized, coordinated movements; with no involuntary movements. Attitude is uncooperative and guarded; defensive. Patient appears distractible and does not relate well to this interviewer. Language production is spontaneous. R/R/ V are normal. Articulation is clear. Patient reports mood as okay with incongruent and expansive affect. Patients thought process is severely disorganized, non-linear, illogical, with loose associations, tangential thought ; paranoid. Patient does not report suicidal/homicidal thoughts, ideas, or plans. Patient denies auditory, visual hallucinations. Patient reports paranoid delusions. Patient does not appear to be attending to internal stimuli. Patients attention and concentration are poor. Patient is oriented to person. Patients insight and judgement are poor. - Time Spent With Patient Time Spent With Patient: 15 minutes, met with patient individually. ICD10 Worksheet Patient Problems: Problems Problem Status Onset Psychosis Acute Schizophrenia Acute
--- NOTE | 2018-02-04 15:33 | ASMTCMCOM ---
CM Note CM Note Notes: The patient participated in clinical treatment team rounds. He was labile and irritable. The patient requested support seeking [facility] treatment. This board writer followed up with [facility] [facility] and the patient to discuss a possible phone intake. The patient later refused stating, "I've already done a program like that. I don't think that one will work for me." The patient was observed laying in his bed with his eyes closed. Date Signed: 02/04/2018 03:32 PM Electronically Signed By:Edyta Sweet
[2018-02-04] MEDS: LORazepam 0.5 MG TAB PO PRN (20:23)
[2018-02-05] MEDS: QUEtiapine FUMARATE 100 MG TAB PO SCH ×2 (08:14→19:59)
[2018-02-05] MEDS: LORazepam 0.5 MG TAB PO PRN ×2 (08:20→19:59)
[2018-02-05] MEDS ORDERED: QUEtiapine FUMARATE 25 MG TAB PO PRN (09:19)
--- NOTE | 2018-02-05 17:11 | SOAPPROG ---
SOAP Progress Note Assessment/Plan: Assessment: Per Billy Middleton's note: Schizoaffective disorder, bipolar type; Stimulant Use Disorder, Severe. No change (see Subjective and Objective). Patient is not safe to discharge at this time as patient continues to exhibit signs of psychosis, and express psychosis symptoms. Patient requires continued inpatient care because of current acute psychosis, and requires inpatient level of care to stabilize in order to no longer be gravely disabled due to mental illness. Patient could benefit from continued inpatient hospitalization for crisis stabilization, safety, and medication evaluation. PLAN: 02/05/18 17:10 1. Patient requesting higher dose of Seroquel. He says he's been on up to 400mg daily in past. MD explains that since patient has been off med for indefinite period of time, it needs to be initiated at starting dose, which is 50mg TDD on Day #1. The recommended titration schedule is 100mg/day every 24 hrs. Therefore will increase to 150mg BID for Wednesday. 2. The most likely cause of patient's acute psychosis is his recent meth use. Patient has h/o meth dependence. It would be difficult, if not impossible, to make a definitive dx of any type of mood or psychotic disorder while patient continues to use brain altering drugs, especially meth, which increase likelihood of psychotic sxs and mood lability. While patient may benefit from antipsychotic meds in the short term to treat drug-induced hallucinations or paranoia, the long-term use of antipsychotic meds in patient with amphetamine dependence is contraindicated as the medication is not effective at treating drug-induced psychosis when patient is not in controlled environment, and the risks and potential adverse effects from SGA's are significant, including EPS, TD, NMS, cardiac effects, dyslipidemia. As a prescriber, I do not think the risks are warranted and would encourage patient's other providers to weigh the potential harm versus the low probability of symptom remission in patient with ongoing substance use issues. 3. Will need f/u with [facility] after d/c. Strongly recommend SA treatment including CAC and/or IOP. 4. VOL Subjective: Patient spends all day in his room, usually asleep. When MD attempted to wake patient up to talk to him, he went right back to sleep. Patient requested Seroquel PRN this AM from RN instead of Zyprexa. Patient was extremely paranoid in ED c/o "gangs" and people trying to kill him. However, his paranoid delusions are most likely the result of a 2 week binge of daily meth use. He is eating and sleeping comfortably, in NAD according to staff. He isolates and interacts very little with peers and staff. MD ordered Seroquel 25mg PRN, but he refused when RN offered it to him. Objective: Vital Signs Temp Pulse Resp BP Pulse Ox 36.8 C 115 H 16 155/89 H 97 02/03/18 06:00 02/05/18 06:00 02/05/18 06:00 02/05/18 06:00 02/05/18 06:00 MSE: Affect: Flat Mood: "OK" TP: Tangential, loose TC: Denies any SI/HI, less paranoid than admission Insight/Judgment: Poor - Time Spent With Patient Time Spent With Patient: 15" - Pending Discharge Pending Discharge Within 24 Hours: No Pending Discharge Within 48 Hours: No ICD10 Worksheet Patient Problems: Problems Problem Status Onset Psychosis Acute Stimulant use disorder Acute Schizoaffective disorder, bipolar type Chronic
[2018-02-06] MEDS: QUEtiapine FUMARATE 100 MG TAB PO SCH ×2 (08:22→19:25)
[2018-02-06] MEDS: LORazepam 0.5 MG TAB PO PRN ×2 (08:33→19:26)
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
--- NOTE | 2018-02-06 16:06 | SOAPPROG ---
SOAP Progress Note Assessment/Plan: Assessment: Per Billy Middleton's note: Schizoaffective disorder, bipolar type; Stimulant Use Disorder, Severe. No change (see Subjective and Objective). Patient is not safe to discharge at this time as patient continues to exhibit signs of psychosis, and express psychosis symptoms. Patient requires continued inpatient care because of current acute psychosis, and requires inpatient level of care to stabilize in order to no longer be gravely disabled due to mental illness. Patient could benefit from continued inpatient hospitalization for crisis stabilization, safety, and medication evaluation. PLAN: 02/05/18 17:10 1. Patient requesting higher dose of Seroquel. He says he's been on up to 400mg daily in past. MD explains that since patient has been off med for indefinite period of time, it needs to be initiated at starting dose, which is 50mg TDD on Day #1. The recommended titration schedule is 100mg/day every 24 hrs. Therefore will increase to 150mg BID for Wednesday. 2. The most likely cause of patient's acute psychosis is his recent meth use. Patient has h/o meth dependence. It would be difficult, if not impossible, to make a definitive dx of any type of mood or psychotic disorder while patient continues to use brain altering drugs, especially meth, which increase likelihood of psychotic sxs and mood lability. While patient may benefit from antipsychotic meds in the short term to treat drug-induced hallucinations or paranoia, the long-term use of antipsychotic meds in patient with amphetamine dependence is contraindicated as the medication is not effective at treating drug-induced psychosis when patient is not in controlled environment, and the risks and potential adverse effects from SGA's are significant, including EPS, TD, NMS, cardiac effects, dyslipidemia. As a prescriber, I do not think the risks are warranted and would encourage patient's other providers to weigh the potential harm versus the low probability of symptom remission in patient with ongoing substance use issues. 3. Will need f/u with [facility] after d/c. Strongly recommend SA treatment including CAC and/or IOP. 4. VOL PLAN: 02/06/18 16:01 1. Patient very sedated, slurred speech, sluggish, could barely keep his eyes open while MD was talking to him. Patient says meds are "kicking in." MD suggested cutting back on medication doses if patient continues to demonstrate sedation. Will hold meds at current doses and re-evaluate tomorrow. 2. Consider reducing frequency and dose of PRN meds. Will monitor for another 24hrs. 3. Patient says he's interested in "long-term" residential care. explained that [facility] is an acute crisis stabilization unit and does not offer long -term tx. Patient says he's done long-term programs for homeless in [place] and is "not allowed back" in several of them. Patient is not willing to provide any more details. 4. CC will try to obtain collateral medical records to understand better how to help patient. Records from recent outpatient providers would be useful. 5. Patient reports h/o AH/VH, but MD sees no evidence of psychotic sxs during this hospitalization. Subjective: Patient sitting in rocking chair in front of TV. He has difficulty keeping his eyes open while talking to MD. He presents as sedated and somnolent. MD inquires whether meds are sedating him, patient says "yes." MD recommends cutting back on patient's use of PRN meds. He agrees to this plan. Patient denies any AH/VH or other psychotic sxs when asked by MD, however, he has reported these sxs in the past. Objective: Vital Signs Temp Pulse Resp BP Pulse Ox 36.6 C 112 H 14 122/78 H 95 02/06/18 06:00 02/06/18 06:00 02/06/18 06:00 02/06/18 06:00 02/06/18 06:00 MSE: Affect: Euthymic Mood: "OK" TP: Slow TC: Denies any SI/HI Insight/ Judgment: Poor - Time Spent With Patient Time Spent With Patient: 15" - Pending Discharge Pending Discharge Within 24 Hours: No Pending Discharge Within 48 Hours: No ICD10 Worksheet Patient Problems: Problems Problem Status Onset Psychosis Acute Stimulant use disorder Acute Schizoaffective disorder, bipolar type Chronic
--- NOTE | 2018-02-07 06:47 | SOAPPROG ---
SOAP Progress Note Assessment/Plan: Assessment: Schizoaffective disorder, bipolar type, currently paranoid, disorganized. Stimulant Use Disorder, Severe. No waste/materials exchange specialist the weekend (see Subjective and Objective). Patient is not safe to discharge at this time as patient continues to exhibit signs of psychosis, and express psychosis symptoms. Patient requires continued inpatient care because of current acute psychosis, and requires inpatient level of care to stabilize in order to no longer be gravely disabled due to mental illness. Patient could benefit from continued inpatient hospitalization for crisis stabilization, safety, and medication evaluation. Plan: (1) Psychotropic medications: After reviewing options, risks, and benefits patient agrees to increase Seroquel to 200 mg po BID. Plan is to continue to observe patient for response and side effects from medications, and ongoing monitoring and evaluation. (2) Review with patient informed consent and recommendations for psychotropic medication treatment listed below (3) Labs: no additional labs at this time (4) Therapy: continue milieu and group therapy (5) Further investigation including gathering information from patients relatives and review of past case records to inform treatment plan. (6) Safety/Wellness plan and follow-up outpatient appointments to be established prior to discharge. Next steps are for patient to meet with school child care attendant to plan a safe discharge plan and establish outpatient services for ongoing treatment. (7) Confer with inpatient treatment team regarding treatment plan. (8) Legal status: voluntary (9) Consider discharge next week if patient is in stable condition, safe, and has a safe discharge plan. (10) Substance abuse intervention: methamphetamine PSYCHOTROPIC MEDICATION TREATMENT INFORMED CONSENT and RECOMMENDATIONS: Review nature of condition, diagnosis, and prognosis. Review nature and purpose of psychotropic medication treatment. Review type of psychotropic medications being ordered. Review risk and benefits of psychotropic medication treatment. Review probable length of time patient will need to take medications. Review risk and benefits of not undergoing psychotropic medication treatment. Review alternative treatments to psychotropic medications. Review psychotropic medications contraindications, drug-drug interactions, side effects, and importance of reporting any side effects to a psychiatric provider or nurse during inpatient hospitalization, and upon discharge to patients psychiatric outpatient provider, primary care provider, or other health health care aide. Review importance of asking a nurse, psychiatric provider, or primary care provider any questions or problems concerning the psychotropic medications. Verify patient understands the information that has been provided, and understands, accepts, and agrees to psychotropic medications. Review patients safety plan and importance of patient to report to staff while hospitalized if patient is ever a danger to self/others, or unable to care for self, and upon discharge, the importance for patient to contact [facility] or [facility], or go to the nearest emergency room, if patient is ever a danger to self/others, or unable to care for self. Recommend that upon discharge patient establish medication management treatment with a psychiatric provider, establishes routine therapy appointments, and follow-up with primary care provider. Verify patient understands and agrees to these recommendations. 02/07/18 06:47 Subjective: Following up with patient for evaluation of psychosis and safety. Patient reports, "Will you please tell them to quit checking on me, opening my door. I' m paranoid that Mr. Allred is coming for me. Sometimes he dresses in police uniform , other times he dresses differently, never know when he's coming." Patient does not report undesirable side effects from the medications, and agrees to continue current medications. Regarding medications patient states, "It's not enough. I was on Seroquel 600 twice a day." Patient reports appetite as good, and reports eating all meals. Patient describes getting 10 hours of sleep. Patient agrees increase Seroquel to 200 mg po BID. Patient requests placement in long-term residential treatment and states, "I am tired of going back out on the streets, afraid for my life, Mr. Allred coming for me." Objective: Vital Signs Temp Pulse Resp BP Pulse Ox 36.6 C 112 H 14 122/78 H 95 02/06/18 06:00 02/06/18 06:00 02/06/18 06:00 02/06/18 06:00 02/06/18 06:00 NURSING REPORT: Consulted with nursing for update on patients progress in treatment. Nurses report patient is not engaged in treatment, is not attending groups, slept 12 hours, is withdrawn to his room, in bed majority of the day, comes out for meals, expresses the following psychiatric symptoms: severe anxiety; exhibits the following psychiatric symptoms: disorganized, paranoid, illogical, non-linear; is eating all meals, is agreeable to medications and taking as prescribed with no report of side effects, with no s/s of EPS/ akathisia, and denies SI/HI, denies A/V hallucinations, and denies delusions. WAREHOUSE PERSON UPDATE: establishing discharge plan with [facility] for follow-up after discharge. Follow-up in [place] if patient to return to [place] after discharge. MSE: The patient is a well-nourished male looking stated chronological age. Attire is inappropriate and dress is casual and hospital garb combination. Grooming status is inappropriate and disheveled. Ambulation is independent. Gait is normal and coordinated. Posture is normal and relaxed. Eye contact is inappropriate, and avoided. Motor activity is appropriate with purposeful, organized, coordinated movements; with no involuntary movements. Attitude is uncooperative and guarded; defensive. Patient appears distractible and does not relate well to this interviewer. Language production is spontaneous. R/R/ V are normal. Articulation is clear. Patient reports mood as okay with incongruent and expansive affect. Patients thought process is disorganized, non -linear, illogical, with loose associations, tangential thought; paranoid. Patient does not report suicidal/homicidal thoughts, ideas, or plans. Patient denies auditory, visual hallucinations. Patient reports paranoid delusions. Patient does not appear to be attending to internal stimuli. Patients attention and concentration are poor. Patient is oriented to person. Patients insight and judgement are poor. Patient has no apparent dysfunction in recent or remote memory noted, and no evidence of gross cognitive dysfunction noted at any point during the interview. SUBSTANCE ABUSE BRIEF INTERVENTION: Brief intervention regarding the risks of methamphetamine abuse is provided to patient with goal to reduce the risk of harm that could result from the continued use of methamphetamine, with the general aim to investigate the problem, raise awareness of problem, develop a solution with the patient, recommend a specific change or activity, and motivate the patient toward change. Assess substance abuse behavior and give supportive advice about harm reduction, recommend a reduction in hazardous/at- risk consumption patterns, and facilitate referrals for additional specialized treatment with director of home care hospice. Intermediate goal is for the patient to quit and engage in outpatient substance abuse treatment. Intervention focus on intermediate goals to allow for more immediate success in the treatment process to keep the patient motivated. Review following with patient: Methamphetamine use risks: Short-term: insomnia, irritability, aggressive behavior, hallucinations, delusions, intellectual deficits, anxiety, depression, convulsions, damage to blood vessels in the brain causing strokes, high fevers, collapse of the circulatory system. Long-term: damage to nerve pathways, maybe irreversibly; overstimulation to dopamine impairing dopamine transport and reducing efficiency of dopamine receptors, the reward system becomes worn out, leading to inability to experience pleasure for years. - Time Spent With Patient Time Spent With Patient: 15 minutes, met with patient individually. - Pending Discharge Pending Discharge Within 24 Hours: No Pending Discharge Within 48 Hours: No ICD10 Worksheet Patient Problems: Problems Problem Status Onset Psychosis Acute Stimulant use disorder Acute Schizoaffective disorder, bipolar type Chronic
[2018-02-07] MEDS: QUEtiapine FUMARATE 100 MG TAB PO SCH ×2 (08:37→20:07)
[2018-02-07] MEDS: LORazepam 0.5 MG TAB PO PRN (08:40)
[2018-02-07] MEDS ORDERED: QUEtiapine FUMARATE 25 MG TAB PO PRN (12:12)
[2018-02-08 06:44] VITALS: BP 117/72
--- NOTE | 2018-02-08 07:38 | ASMTBHDC ---
Notes Note: Notes: CC confirmed client's follow up appts & will call for [facility] bed for tonight. Follow up with: [facility] [address], [address] [place], [address] O# [phone] Next Appointment: with Vignesh Miller on February 10 (02/10/18) at 3:15pm at [address] [facility] [address]. [address]nd floor; one hour telehealth appt! Therapy: with Heraclio Peacock, on February 10 (02/10/18) at 10:45am (same location). [facility] there is good place to eat a good and cheap lunch, and he can also see about using computers there while hes waiting for Vignesh. Additional Resources: [place] [address] [address] [facility] [address] [place] [id number] Date Signed: 02/08/2018 07:37 AM Electronically Signed By:Julius Nazario
--- NOTE | 2018-02-08 07:57 | ASMTBHDC ---
Notes Note: Notes: CC confirmed a [facility] bed for [facility]. Client can arrive between 5-7 pm* Will illustrate this on his discharge checklist.* Date Signed: 02/08/2018 07:56 AM Electronically Signed By:Julius Nazario
[2018-02-08] MEDS: QUEtiapine FUMARATE 100 MG TAB PO SCH (08:24)
--- NOTE | 2018-02-08 09:04 | BDS ---
REASON FOR ADMISSION: From the ED note dated 02/02/2018, patient presented to the emergency department by EMS with police escort after patient was seen at [facility] and had an evaluation, placed on an M1 hold for potentially being gravely disabled and paranoid. Patient was very uncooperative in the emergency room. Patient refused to take off his jacket, refusing vital signs, and refusing blood work. During the initial psychiatric assessment and history evaluation with this DELI CUTTER SLICER, patient reported using methamphetamine daily for 2 weeks prior to hospitalization. Patient reported increased paranoia, decreased need for sleep, and auditory hallucinations. Patient reported a history of methamphetamine abuse. Patient was admitted involuntarily on an M1 hold due to being gravely disabled due to a mental illness. Patient was hospitalized for safety, crisis stabilization, and medication evaluation. ADMITTING DIAGNOSES: 1. Stimulant induced psychotic disorder with delusions. 2. Stimulant use disorder. 3. Drug-seeking behavior. 4. Malingering. 5. Schizoaffective disorder, bipolar type, suspected. ADMISSION PHYSICAL EXAM: Patient was seen on 02/03/2018, for an Internal Medicine consultation for medical clearance for inpatient Behavioral Health stay. Patient was medically cleared for inpatient Behavioral Health stay. Dr. Nicholas reported he saw no medical contraindications to the patient's continued stay on the inpatient behavioral health unit or to any psychiatric medications or procedures. For further details, please refer to Dr. Nicholas's Internal Medicine consultation note dated 02/03/2018. ADMISSION LABS: CBC showed an elevated white blood cell count at 11.72. There was no left shift. There were predominantly neutrophils and monocytes. Patient had a deficit of eosinophils. Serum chemistry revealed an anion gap of 15. Otherwise, renal function and electrolytes were normal. Glucose was mildly elevated at 112. Hemoglobin A1c was 5.2. Calcium was slightly elevated at 10.6. Liver function tests revealed an elevated AST at 60. Otherwise, liver function tests were normal with a high protein at 8.6. Lipid panel was quite benign, with cholesterol of 160, LDL of 74, and HDL of 73. Toxicology screen in the serum was negative for ethyl alcohol, and in the urine was negative for substances of abuse screened. MAJOR PROCEDURES/TESTS: None. HOSPITAL COURSE: The most prominent symptoms and behaviors while the patient was here were disorganized behavior and disorganized thought process, and signs and symptoms of methamphetamine withdrawal including: agitation, paranoia, hypersomnia, and increased hunger. Patient was withdrawn to room. Patient slept the majority of his stay in his room. Patient was up for meals and snacks. Patient requested Ativan numerous times during his stay and there was no indication for Ativan for the patient's symptoms. Patient also requested additional meals and snacks throughout his stay. Throughout the patient's hospitalization, patient requested housing. Patient stated that if he was not going to stay here that he wanted to be transferred somewhere else where he could stay. Overall, patient spent the majority of his hospitalization sleeping in his room and eating all meals and additional snacks. Patient's symptoms of psychosis and paranoia improved rapidly with the initiation of antipsychotic medications. Treatment modalities utilized during the patient's hospitalization were milieu and group therapy. Seroquel 100 mg p.o. b.i.d. was started and titrated to 200 mg p.o. b.i.d. Titration was tolerated with no report of side effects and with good response at time of discharge. Patient has improved considerably with no signs of psychiatric symptoms and no psychiatric symptoms expressed at time of discharge. Patient reports he has improved since admission, states to be in stable condition, reports he feels safe to discharge today, and he contracts for safety. Patient's response to treatment was good. There were no adverse or unexpected results of treatment. The patient was safe throughout his stay, active in treatment, engaged in groups , and was appropriate with staff and other patients. The treatment team consensus is the patient is in stable condition, has a safe discharge plan, and is ready to discharge today. CONDITION AT DISCHARGE: Patient is in stable condition and is no longer a danger to self or others, and is not gravely disabled due to mental illness. Patient is no longer in need of inpatient level of care, and can be safely and effectively treated within the community. The patients level of risk at time of discharge is low. MSE: The patient is casually dressed and with good hygiene , and looks stated age. Patient is sitting, posture is upright, and position is relaxed. Patient appears awake, alert, and responds appropriately and reasonably during interview. Patient is engaged, relates well to interviewer, and emotional facial expression is appropriate to situation and changes appropriately with topic. Patient is cooperative, makes comfortable eye contact , and movements are voluntary, deliberate, coordinated, and smooth and even with no inappropriate movements. Patient makes laryngeal sounds effortlessly and shares conversation appropriately; pace of conversation is appropriate, and stream of talking is fluent; articulation is clear and understandable; word choice is effortless and appropriate for education level; completes sentences, occasionally pausing to think; rate and volume are appropriate for interview and setting. Patient reports mood as euthymic. Patients affect is stable with full variable range, congruent with mood, and appropriate to speech and circumstances. Patient has linear and logical thinking, with no loose associations, tangential thought, thought blocking, concrete thinking, or any other signs of formal thought disorder. Patient denies suicidal and homicidal ideation, and denies hallucinations and delusions. Patient appears to be a reliable historian with sound judgement and good insight into current condition. Patient has no apparent dysfunction in recent or remote memory noted , and no evidence of gross cognitive dysfunction noted at any point during the interview. DISCHARGE DIAGNOSES: 1. Stimulant induced psychotic disorder with delusions. 2. Stimulant use disorder. 3. Drug-seeking behavior. 4. Malingering. 5. Stimulant withdrawal CURRENT MEDICATIONS: After reviewing options, risks, and benefits with the patient, patient agrees to continue Seroquel 200 mg p.o. b.i.d. patient requests prescriptions for the following medications at time of discharge, Seroquel 200 mg p.o. b.i.d., prescription for 30 days is provided. The prescription was reviewed with the patient at time of discharge to ensure accuracy and patient understanding. DISPOSITION: The patient left hospital independently and voluntarily and plans to go to the homeless senior living in [place] and plans to follow up for medication management and therapy at [facility]. FOLLOWUP: taxicab coordinator reports the appropriate outpatient follow-up services have been established and outpatient appointments have been scheduled. The patient received written instructions with times and dates of outpatient follow-up appointments. The following follow-up recommendations were provided to the patient at discharge: Continue psychotropic medications as prescribed and attend appointments as scheduled. Report any side effects to a psychiatric outpatient provider, a primary care provider, or other health rn progressive care unit. Address any questions or problems concerning the psychotropic medications with a psychiatric outpatient provider, a primary care provider, or other health rn progressive care unit. Contact [facility] or [facility], or go to the nearest emergency room, if you are ever a danger to yourself/others, or unable to care for yourself. As soon as possible, establish a routine medication management treatment with a psychiatric provider, establish routine therapy appointments, and follow-up with a primary care provider. SUBSTANCE ABUSE BRIEF INTERVENTION: Brief intervention regarding the risks of methamphetamine abuse is provided to patient with goal to reduce the risk of harm that could result from the continued use of methamphetamine, with the general aim to investigate the problem, raise awareness of problem, develop a solution with the patient, recommend a specific change or activity, and motivate the patient toward change. Assess substance abuse behavior and give supportive advice about harm reduction, recommend a reduction in hazardous/at- risk consumption patterns, and facilitate referrals for additional specialized treatment with home day care provider. Intermediate goal is for the patient to quit and follow-up outpatient for substance abuse treatment. Intervention focus on intermediate goals to allow for more immediate success in the treatment process to keep the patient motivated. Review following with patient: Methamphetamine use risks: Short-term: insomnia, irritability, aggressive behavior, hallucinations, delusions, intellectual deficits, anxiety, depression, convulsions, damage to blood vessels in the brain causing strokes, high fevers, collapse of the circulatory system. Long-term: damage to nerve pathways, maybe irreversibly; overstimulation to dopamine impairing dopamine transport and reducing efficiency of dopamine receptors, the reward system becomes worn out, leading to inability to experience pleasure for years. OUTPATIENT SUBSTANCE ABUSE TREATMENT: Patient referred to outpatient provider and treatment for continued treatment related to substance abuse. LEGAL COURSE: Patient was admitted on an M1 hold for involuntary inpatient psychiatric hospitalization due to being gravely disabled. Patient became voluntary during his stay and patient discharged today independently and voluntarily. ATTITUDE AT TIME OF DISCHARGE: Patient states, "I'm just glad I got come here, get some sleep and some good meals; nice to have a place to stay. Look forward to leaving today." The patients attitude was positive at time of discharge, and patient reports looking forward to discharging today. The patient reports he feels safe to discharge, is no longer a danger to himself or others, is in stable condition, and contracts for safety. Patient states he will continue medications as prescribed, and establish medication management treatment with an outpatient provider after discharge. Patient reports he understands the information that has been provided to him, and he understands, accepts, and agrees to psychotropic medications. Patient describes internal protective factors as the coping skills he has learned while hospitalized here, and he plans to continue to practice these coping skills after discharge. LABORATORY AND RADIOLOGY STUDIES: There were no pending labs or studies at time. ADVANCED DIRECTIVES: There were no advance directives on file and the patient was full code during this hospitalization. The following psychotropic medication treatment informed consent and recommendations were provided to the patient at time of discharge. Patient reports he understands, accepts, and agrees to the information that has been provided. PSYCHOTROPIC MEDICATION TREATMENT INFORMED CONSENT and RECOMMENDATIONS: Review nature of condition, diagnosis, and prognosis. Review nature and purpose of psychotropic medication treatment. Review type of psychotropic medications being prescribed. Review risk and benefits of psychotropic medication treatment. Review probable length of time will need to take medications. Review risk and benefits of not undergoing psychotropic medication treatment. Review alternative treatments to psychotropic medications. Review psychotropic medications contraindications, side effects, and importance of reporting any side effects to a psychiatric provider, primary care provider, or other health rn progressive care unit. Review importance of asking a psychiatric provider or primary care provider any questions or problems concerning the psychotropic medications. Review safety plan and the importance to contact [facility] or [facility] , or go to the nearest emergency room, if ever a danger to yourself/others, or unable to care for yourself. Recommend upon discharge to establish routine medication management treatment with a psychiatric provider, establish routine therapy appointments, and follow-up with a primary care provider. Verify patient understands, accepts, and agrees to the information that has been provided. /[id number]
== END 2018-02-08 14:00 | disposition home or self-care (01) | DRG 897 ==
LOC: EDUNIT# → BBEH 20:35
PROVIDERS: ADMIT Psychiatry & Neurology Psychiatry; ATTEND Registered Nurse
DX: F15.950 Other stimulant use, unspecified with stimulant-induced psychotic disorder with delusions (principal); Z76.5 Malingerer [conscious simulation]; J45.909 Unspecified asthma, uncomplicated; F17.200 Nicotine dependence, unspecified, uncomplicated
CPT/HCPCS: 80305; G0480